=== PATIENT | female | born 1940 | race African-American/Black ===

== ENCOUNTER 2018-10-30 10:23 | Day surgery (SDC) | payer MEDICARE, OTHER ==
[2018-10-30] VITALS (8 sets, daily range): BP systolic 113–129; BP diastolic 52–63
[~2018-10-30] VITALS: Ht 142.2 cm; Wt 63.0 kg
--- NOTE | 2018-10-30 06:43 | Pre-Procedure Note/Attestation ---
Pre-Procedure Note/Attestation Complete Prior to Procedure Planned Procedure: left - Removal of cataract and placement of intraocular lens , left eye Procedure Narrative: Removal of cataract and placement of intraocular lens, left eye Indications for Procedure Pre-Operative Diagnosis: Cataract, combined, left eye interfering with vision Attestation I attest that I discussed the nature of the procedure; its benefits; risks and complications; and alternatives (and the risks and benefits of such alternatives ), prior to the procedure, with the patient (or the patient's legal outside energy sales representatives). I attest that, if there was a reasonable possibility of needing a blood transfusion, the patient (or the patient's legal outside energy sales representatives) was given the [facility] standardized written summary, pursuant to the Nando Richard Blood Safety Act ([place] Health and Safety Code # 1645, as amended). I attest that I re-evaluated the patient just prior to the surgery and that there has been no change in the patient's H&P, except as documented below: ePpe Lopez MD Oct 30, 2018 06:43
[2018-10-30] MEDS ORDERED: Lidocaine 4% Amp ONE (10:34)
[2018-10-30] MEDS ORDERED: Carbachol 0.01% Op Soln 1.5ml vial ONE (10:34)
[2018-10-30] MEDS ORDERED: EPINEPHrine 1mg/1ml Amp ONE (10:34)
[2018-10-30] MEDS ORDERED: Fluorescein Strips ONE (10:34)
[2018-10-30] MEDS ORDERED: Maxitrol Opth Oint 3.5gm ONE (10:34)
[2018-10-30] MEDS ORDERED: Lidocaine 1% MPF 10mg/ml 5ml ONE (10:34)
[2018-10-30] MEDS ORDERED: BSS 15ml BTL ONE (10:35)
[2018-10-30] MEDS ORDERED: Tetracaine 0.5% Opth 4ml Soln ONE (10:35)
[2018-10-30] MEDS ORDERED: BSS 500ml btl ONE (10:35)
[2018-10-30] MEDS ORDERED: Timolol 0.5% Op Soln 2.5ml ONE (10:35)
[2018-10-30] MEDS ORDERED: Acetylcholine Injection (OR) ONE (10:35)
[2018-10-30] MEDS ORDERED: Dexamethasone 4mg/ml vial ONE (10:35)
[2018-10-30] MEDS ORDERED: Povidone-Iodine 5% opth solution ONE (10:35)
[2018-10-30] MEDS ORDERED: Bupivacaine 0.75% 30ml vial INJ ONE (10:35)
[2018-10-30] MEDS ORDERED: Sodium Hyaluronate 10 mg/ml 0.85ml ONE ×2 (10:36→14:34)
[2018-10-30] MEDS ORDERED: Akten 3.5% 1ml Btl ONE (10:43)
[2018-10-30] MEDS ORDERED: Tobradex Opth Susp 2.5ml ONE (10:43)
[2018-10-30] MEDS ORDERED: Phenylephrine 10% Opth Soln 5ml ONE (10:43)
[2018-10-30] MEDS ORDERED: Ciprofloxacin Opth Soln 2.5ml ONE (10:43)
[2018-10-30] MEDS ORDERED: Cyclopentolate 1% Opth Sol 2ml ONE (10:43)
[2018-10-30] MEDS ORDERED: Tropicamide 1% Opth 15ml Soln ONE (10:44)
[2018-10-30] MEDS ORDERED: Propofol 200mg/20ml IV ONE (11:03)
[2018-10-30] MEDS ORDERED: fentaNYL 100 mcg/2 mL IV ONE (11:03)
[2018-10-30] MEDS: Cyclopentolate 1% Opth Sol 2ml LEFT EYE SCH ×3 (11:10→11:39)
[2018-10-30] MEDS: Akten 3.5% 1ml Btl LEFT EYE SCH ×3 (11:10→11:39)
[2018-10-30] MEDS: Phenylephrine 10% Opth Soln 5ml LEFT EYE SCH ×3 (11:11→11:38)
[2018-10-30] MEDS: Tobradex Opth Susp 2.5ml LEFT EYE SCH ×3 (11:11→11:39)
[2018-10-30] MEDS: Ciprofloxacin Opth Soln 2.5ml LEFT EYE SCH ×3 (11:11→11:39)
[2018-10-30] MEDS: Tropicamide 1% Opth 15ml Soln LEFT EYE SCH ×3 (11:11→11:38)
--- NOTE | 2018-10-30 11:47 | Anethesia Preoperative Eval ---
Anesthesia Pre-op PMH/ROS General Date of Evaluation: Oct 30, 2018 Time of Evaluation: 11:44 Anesthesiologist: Bonita Franz CRNA ASA Score: ASA 3 Mallampati Score Class I : Soft palate, uvula, fauces, pillars visible Class II: Soft palate, uvula, fauces visible Class III: Soft palate, base of uvula visible Class IV: Only hard plate visible Mallampati Classification: Class II Surgeon: Jessica Diagnosis: Nuclear sclerotic cataract Surgical Procedure: LEFT eye cataract extraction wtih IOL implant Anesthesia History: none Family History: no anesthesia problems Allergies: Coded Allergies: ERYTHROMYCIN BASE (Verified Allergy, Intermediate, itching, 10/30/18) PENICILLINS (Verified Allergy, Intermediate, itching, 10/30/18) RAMIPRIL (Verified Allergy, Intermediate, coughing, 10/30/18) CEFPROZIL (Verified Adverse Reaction, Intermediate, stomach upset, 10/30/18 ) CEPHALOSPORINS (Verified Adverse Reaction, Intermediate, stomach upset, ) LEVOFLOXACIN (Verified Adverse Reaction, Intermediate, headache, 10/30/18) Medications: see eMAR Patient NPO?: Yes NPO Date: Oct 30, 2018 NPO Time: 00:00 Past Medical History Cardiovascular: Reports: HTN, CAD, other - s/p CABG, permanent pacemaker; Denies: WI, valve dz, arrhythmia Pulmonary: Denies: asthma, COPD, ELDON, other Gastrointestinal/Genitourinary: Reports: GERD; Denies: CRI, ESRD, other Neurologic/Psychiatric: Reports: depression/anxiety; Denies: dementia, CVA, TIA, other Endocrine: Denies: DM, hypothyroidism, steroids, other HEENT: Reports: cataract (L), cataract (R), glaucoma, [place] (L), [place] (R), other - Hx of Meniere's Hematology/Immune: Denies: anemia, DVT, bleeding disorder, other Musculoskeletal/Integumentary: Reports: OA, other - PVD; Denies: RA, DJD, DDD, edema PMH Narrative: as noted above PSxH Narrative: cochear implant, CABG, pacemaker, sinus surger Anesthesia Pre-op Phys. Exam Physician Exam Last 24 Hour Vital Signs Date Time Temp Pulse Resp B/P (MAP) Pulse Ox O2 Delivery O2 Flow Rate FiO2 10/30/18 11:51 Room Air 3/27/19 11:46 97.3 66 18 117/63 100 Room Air Constitutional: NAD Neurologic: other - Alert and oriented; [place], RT cochlear implant, LT hearing aid Cardiovascular: RRR Respiratory: CTA Gastrointestinal: S/NT/ND Airway Exam Mallampati Score: Class II MO: full Neck: no limiations TMD: > 3 FB ROM: full Teeth: intact Dentures: upper - partial, lower - partial Anesthesia Pre-op A/P Labs in chart, reviewed Studies Pre-op Studies: EKG - NSR Risk Assessment & Plan Assessment: ASA 3, ok to proceed Plan: MAC Status Change Before Surgery: No Pre-Antibiotics Given Within 1 Hr of Incision: No Bonita Franz CRNA Oct 30, 2018 11:47
[2018-10-30] MEDS ORDERED: ACYCLOVIR400 MG ORAL (11:55)
[2018-10-30] MEDS ORDERED: AMLODIPINE BESY10 MG ORAL (11:55)
[2018-10-30] MEDS ORDERED: ASPIRIN-LOW81 MG ORAL (11:56)
[2018-10-30] MEDS ORDERED: ATORVASTATIN CA40 MG ORAL (11:57)
[2018-10-30] MEDS ORDERED: DICYCLOMINE HCL10 MG PO (11:59)
[2018-10-30] MEDS ORDERED: LR 1000ml ONE (12:00)
[2018-10-30] MEDS ORDERED: Sterile Water Irrig 1000ml IRRIG ONE (12:00)
[2018-10-30] MEDS ORDERED: BRIMONIDINE TART5 ML BOTH EYES (12:01)
[2018-10-30] MEDS ORDERED: CALCIUM + VITA1 EAC1 PO (12:02)
[2018-10-30] MEDS ORDERED: KLONOPIN0.5 MG ORAL (12:04)
[2018-10-30] MEDS ORDERED: DEXAMETHASONE4 M1 PO (12:05)
[2018-10-30] MEDS ORDERED: TRUSOPT10 ML BOTH EYES (12:06)
[2018-10-30] MEDS ORDERED: NEXIUM40 MG ORAL (12:07)
[2018-10-30] MEDS ORDERED: FUROSEMIDE20 M1 ORAL (12:07)
[2018-10-30] MEDS ORDERED: LATANOPROST2.5 ML BOTH EYES (12:08)
[2018-10-30] MEDS ORDERED: MIRALAX17 G2 ORAL (12:08)
[2018-10-30] MEDS ORDERED: POTASSIUM CHLO20 ME2 ORAL (12:09)
[2018-10-30] MEDS ORDERED: VENLAFAXINE H37.5 MG ORAL (12:10)
--- NOTE | 2018-10-30 13:04 | Discharge Instructions ---
Discharge Instructions Discharge Instructions Follow Up Orders Continue preop medications Wear shield at all times except to place eye drops Followup in Dr Lopez's office tomorrow, sooner as needed For Congestive Heart Failure Reminder Report to your physician any weight gain of 5 pounds or more in one week. Pepe Lopez MD Oct 30, 2018 13:04
--- NOTE | 2018-10-30 13:06 | Brief Operative Note ---
Immediate Post Operative Note Operative Note Pre-op Diagnosis: Cataract, combined, left eye interfering with vision Procedure: Phaco PC IOL, OS Post-op Diagnosis: same as pre-op Surgeon: Misa Lopez MD MS Building Certifier: none Anesthesiologist: Bonita Franz CRNA Anesthesia: local, MAC Specimen: none Complications: none Fluids: see chart Implant(s) used?: Yes - Sri [id number] 26.5 Pepe Lopez MD Oct 30, 2018 13:06
--- NOTE | 2018-10-30 13:09 | Immediate Post-Op Evaluation ---
Immediate Post-Op Evalulation Immediate Post-Op Evalulation Procedure: LEFT eye cataract extraction with IOL Date of Evaluation: Oct 30, 2018 Time of Evaluation: 13:02 IV Fluids: LR 400 ml Blood Pressure Systolic: 119 Blood Pressure Diastolic: 54 Pulse Rate: 60 Respiratory Rate: 20 O2 Sat by Pulse Oximetry: 100 Temperature (Fahrenheit): 98.0 Pain Score (1-10): 0 Nausea: No Vomiting: No Complications none Patient Status: awake, reacts, patent Hydration Status: adequate Given Within 1 Hr of Incision: Bonita Mcneal CRNA Oct 30, 2018 13:09
--- NOTE | 2018-10-30 14:29 | 48 Hour Post Anesthesia Eval ---
Post Anesthesia Evaluation Procedure: LEFT eye cataract extraction with IOL Date of Evaluation: Oct 30, 2018 Time of Evaluation: 14:28 Blood Pressure Systolic: 113 0: 57 Pulse Rate: 61 Respiratory Rate: 20 Temperature (Fahrenheit): 97.2 O2 Sat by Pulse Oximetry: 100 Airway: patent Nausea: No Vomiting: No Pain Intensity: 0 Hydration Status: adequate Cardiopulmonary Status: stable Mental Status/LOC: patient returned to baseline Follow-up Care/Observations: per opthomology Post-Anesthesia Complications: none Follow-up care needed: N/A Bonita Franz CRNA Oct 30, 2018 14:29
--- NOTE | 2018-10-30 20:15 | Operative Note - Dictated ---
DATE OF OPERATION: 10/30/2018 SURGEON: Pepe Lopez M.D. APPEALS BOARD REFEREE SURGEON: None. ANESTHESIOLOGIST: Bonita Franz CRNA. ANESTHESIA: Local/standby/monitored anesthesia care. PREOPERATIVE DIAGNOSIS: Cataract, combined, left eye. POSTOPERATIVE DIAGNOSIS: Cataract, combined, left eye. PROCEDURE: 1. Phacoemulsification of cataract, left eye. 2. Placement of posterior chamber intraocular lens, left eye (model [id number], ZCB00 power 26.5). SPECIMENS: None. COMPLICATIONS: None. INDICATIONS FOR SURGERY: The patient has had the painless progressive decrease in visual acuity in the left eye secondary to cataract. The patient understands the risks of surgery including infection, bleeding, need for further surgery, loss of vision, no improvement in vision, loss of the eye, loss of life, glaucoma, retinal detachment, understands these risks and elects to proceed with surgery. FINDINGS: The patient had a very dense +3 to 4 nuclear sclerotic cataract with +3 cortical changes. In addition, the nucleus was very dense posteriorly. OPERATIVE NOTE: After informed consent was obtained, the patient was brought to the operating room and placed in the supine position. Cardiac and respiratory monitors were attached. A time-out was performed and all criteria were met and everyone one in the room agreed. The left eye was then draped and prepped in sterile manner for ocular surgery. A lid speculum was placed in the eye. A 1% lidocaine preservative-free was injected at the approximate 2 o'clock limbus. A conjunctiva peritomy from approximately the 2 o'clock to 3:30 was made and dissected posteriorly. Hemostasis was maintained with bipolar cautery. A 2.6 mm limbal incision was made centered at approximately 2:30 and dissected anteriorly. A paracentesis was made at approximately 5:30 and Shugarcaine was injected into the anterior chamber followed by Healon. The anterior chamber was then entered using a 2.6 mm keratome through the limbal incision. An anterior capsulorrhexis was then performed. Hydrodissection and hydrodelineation of the lens was then performed. The lens was then phacoemulsified using a divide and conquer four-quadrant technique. Residual cortical material was then aspirated. Healon was injected into the anterior chamber and capsular bag. The lens was taken from its package, placed into the cartridge and the tip of the cartridge was placed through the limbal incision. The lens was injected into the capsular bag and centered nicely with a Sinskey hook. Healon was aspirated from the anterior chamber and capsular bag. One 10-0 nylon interrupted suture was then placed through the limbal incision and the knot was rotated and buried. Care was taken during the entire procedure not to touch the endothelium. The wounds were checked and found to be watertight. The conjunctiva was then closed with forceps cautery. The lens was then examined again and it was noted that both haptics and the optic were in the bag and centered along the 3:00 to 9:00 axis. The lid speculum and drapes were removed from the eye and drops of ciprofloxacin and TobraDex were applied to the eye followed by Maxitrol ointment and a shield. The patient tolerated the procedure well and left the operating room awake, alert, and in stable condition. Pepe Lopez M.D. DR: PURA JOB#: [id number] CC:
== END 2018-10-30 14:25 | disposition home or self-care (01) ==
LOC: SUR 10:23 → EDSEX 10:23 → SUR 14:25
DX: H25.12 Age-related nuclear cataract, left eye (principal); H25.012 Cortical age-related cataract, left eye; Z88.0 Allergy status to penicillin; Z88.8 Allergy status to other drugs, medicaments and biological substances; I11.9 Hypertensive heart disease without heart failure; Z95.1 Presence of aortocoronary bypass graft; Z95.0 Presence of cardiac pacemaker; K21.9 Gastro-esophageal reflux disease without esophagitis; F32.9 Major depressive disorder, single episode, unspecified; F41.9 Anxiety disorder, unspecified
CPT/HCPCS: 66984; J0171; J1100; J2704; J3010; V2632; 94003; 94150